=== PATIENT | male | born 1995 | race Caucasian/White ===

== ENCOUNTER 2020-06-24 17:13 | Outpatient (CLI) | payer OTHER | END 2020-06-24 17:14 | disposition critical access hospital (66) | LOC: EMS 17:13 | PROVIDERS: ATTEND Surgery | DX: R00.0 Tachycardia, unspecified (principal); R20.0 Anesthesia of skin; R06.9 Unspecified abnormalities of breathing | CPT/HCPCS: A0425; A0429 ==

== ENCOUNTER 2020-06-24 17:36 | Emergency (ER) | payer OTHER ==
--- NOTE | 2020-06-24 17:52 | ED Physician Documentation ---
History of Present Illness - Stated complaint Stated Complaint: HEART RACING - History obtained from History obtained from: Patient - Additonal information Additional information: 24-year-old gentleman, active duty in the [employer]. He intermittently has palpitations and had an episode tonight. They happen about every 6 months. He describes a 3 to 5-minute episode of heart rate very fast with some shortness of breath but no chest pain. It was resolved before EMS arrival. He is now asymptomatic. No pedal edema or calf pain. Review of Systems Ten Systems: 10 systems reviewed and negative Constitutional: denies: Fever, Chills, Myalgias, Weight Loss Cardiac: denies: Pedal edema, Calf pain Respiratory: denies: Dyspnea, Cough, Hemoptysis, Wheezing PD PAST MEDICAL HISTORY - Allergies Allergies/Adverse Reactions: Allergies Allergy/AdvReac Type Severity Reaction Status Date / Time Quinolones Allergy Unknown Verified 06/24/20 18:00 PD ED PE NORMAL - Vitals Vital signs reviewed: Yes - General General: Alert and oriented X 3, No acute distress - HEENT HEENT: PERRL, EOMI - Neck Neck: Supple, no meningeal sign, No bony TTP - Cardiac Cardiac: RRR, No murmur - Respiratory Respiratory: No respiratory distress, Clear bilaterally - Abdomen Abdomen: Normal bowel sounds, Soft, Non tender - Back Back: No CVA TTP, No spinal TTP - Derm Derm: Normal color, Warm and dry - Extremities Extremities: No edema, No calf tenderness / cord - Neuro Neuro: Alert and oriented X 3, Normal speech - Psych Psych: Normal mood, Normal affect Results - Vitals Vitals: Vital Signs - 24 hr 06/24/20 17:37 Temperature 37.1 C Heart Rate 100 Respiratory 16 Rate Blood Pressure 135/72 H O2 Saturation 100 Oxygen O2 Source Room air - EKG (time done) 1741 Rate: Rate (enter#) (102) Rhythm: Sinus tachycardia Brogan: Normal Intervals: Normal IA QRS: Normal Ischemia: Normal ST segments Computer interpretation: Agree with computer - Labs Labs: Laboratory Tests 06/24/20 06/24/20 06/24/20 18:02 18:02 18:02 WBC 5.5 RBC 4.93 Hgb 14.7 Hct 41.8 L MCV 84.8 MCH 29.8 MCHC 35.2 RDW 12.4 Plt Count 180 MPV 8.7 Neut # (Auto) 2.6 Lymph # (Auto) 2.3 Bullitt # (Auto) 0.4 Eos # (Auto) 0.1 Baso # (Auto) 0.0 Absolute Nucleated RBC 0.00 Nucleated RBC % 0.0 Sodium 140 Potassium 3.5 Chloride 103 Carbon Dioxide 27 Anion Gap 10.0 BUN 16 Creatinine 1.1 Estimated GFR (MDRD) 81 L Glucose 107 H Calcium 9.0 Magnesium 2.1 TSH 2.23 PD MEDICAL DECISION MAKING - ED course ED course: 24-year-old gentleman with resolved palpitations, per his description potentially a paroxysmal SVT. Will check EKG, electrolytes, cardiac monitoring while in the emergency department giving that he had happens for several minutes every 6 months unlikely to find a specific diagnosis in the department and discussed with him that [place] or event monitoring. Departure - Departure Disposition: Home, Self Care Clinical Impression: Palpitations Condition: Good Record reviewed to determine appropriate education?: Yes Instructions: ED Palpitations Comments: Work-up today was as discussed without pertinent positive findings. Presume based on your description that she had a paroxysmal supraventricular tachycardia which is a very common phenomenon, however as discussed I cannot promise this because without witnessing it it is impossible to definitively diagnose. [place] monitoring or event monitoring. Return if worsening.
[2020-06-24 18:10] LABS: BASOPHILS % (AUTO) 0.4 %; EOSINOPHILS # (AUTO) 0.1 10^3/uL (0.0-0.7); EOSINOPHILS % (AUTO) 2.5 %; HGB - HEMOGLOBIN 14.7 g/dL (14.0-18.0); LYMPHOCYTES # (AUTO) 2.3 10^3/uL (1.5-3.5); LYMPHOCYTES % (AUTO) 42.1 %; MEAN CORPUSCULAR HEMOGLOBIN 29.8 pg (27.0-31.0); MEAN CORPUSCULAR HGB CONC 35.2 g/dL (32.0-36.0); MEAN CORPUSCULAR VOLUME 84.8 fL (80.0-94.0); MEAN PLATELET VOLUME 8.7 fL (7.4-11.4); MONOCYTES # (AUTO) 0.4 10^3/uL (0.0-1.0); MONOCYTES % (AUTO) 7.1 %; NEUTROPHILS # (AUTO) 2.6 10^3/uL (1.5-6.6); NEUTROPHILS % (AUTO) 47.5 %; PLT - PLATELET COUNT 180 10^3/uL (130-450); RED BLOOD COUNT 4.93 10^6/uL (4.70-6.10); RED CELL DISTRIBUTION WIDTH 12.4 % (12.0-15.0); WHITE BLOOD COUNT 5.5 x10^3/uL (4.8-10.8)
[2020-06-24 18:16] LABS: CREATININE 1.1 mg/dL (0.6-1.2); MAGNESIUM 2.1 mg/dL (1.7-2.8)
[2020-06-24 19:16] VITALS: BP 121/75
== END 2020-06-24 19:10 | disposition home or self-care (01) ==
LOC: ED 17:36
DX: R00.0 Tachycardia, unspecified (principal)
CPT/HCPCS: 36415; 80048; 83735; 84443; 85025; 93005; 99284